=== PATIENT | female | born 1985 | race African-American/Black ===

== ENCOUNTER 2018-07-05 14:24 | Emergency (ER) | payer OTHER ==
[~2018-07-05] VITALS: Ht 167.6 cm; Wt 74.8 kg
== END 2018-07-05 17:45 | disposition home or self-care (01) ==
LOC: ER 14:24
DX: T78.49XA Other allergy, initial encounter (principal); R21 Rash and other nonspecific skin eruption

== ENCOUNTER 2018-07-06 09:50 | Emergency (ER) | payer OTHER ==
[~2018-07-06] VITALS: Ht 167.6 cm; Wt 79.4 kg
== END 2018-07-06 17:05 | disposition home or self-care (01) ==
LOC: ER 09:50
DX: T78.49XA Other allergy, initial encounter (principal); R21 Rash and other nonspecific skin eruption